=== PATIENT | female | born 1945 | race Caucasian/White ===

== ENCOUNTER → 2017-08-29 08:07 | Outpatient (CLI) | payer MEDICARE, OTHER, SELFPAY ==
--- NOTE | 2017-08-29 08:07 | DT_ITS ---
This patient was seen during an EMR downtime August 27, 2017 - September 03, 2017. This patient may have a combination of paper and electronic documentation or all paper documentation. All documentation is viewable within the e-chart portion of [facility] for each patient visit.
[2017-09-03 12:32] LABS: BUN 12 mg/dL (7-18); BUN/Creat Ratio 17.9 RATIO (10-20); Calcium,Total 9.7 mg/dL (8.5-10.1); Chloride 101 mmol/L (98-107); Creatinine, Serum 0.67 mg/dL (0.55-1.02); EST Glomerular Filtration Rate 92 mL/min (>60); Est Glom Filt Rate - Afr Amer 112 mL/min (>60); Glucose 89 mg/dL (74-106); Potassium 3.5 mmol/L (3.5-5.1); Sodium Level 140 mmol/L (136-145)
[2017-09-03 12:33] LABS: Anion Gap 10 (5-15)
== END ==
PROVIDERS: Family Provider Family Medicine; PCP Family Medicine; Visit Provider Nurse Practitioner Family
DX: E87.6 Hypokalemia (principal)
CPT/HCPCS: 36415; 80048

== ENCOUNTER → 2020-11-17 08:38 | Outpatient (CLI) | payer MEDICARE, SELFPAY ==
--- NOTE | 2020-11-17 08:47 | US_ITS ---
STUDY: ULTRASOUND BREAST - RIGHT REASON FOR EXAM: Female, 74 years old. 6 month history of a right breast mass. Patient refuses a mammogram. TECHNIQUE: Axial and longitudinal images of the RIGHT breast were performed with a high resolution ultrasound transducer. # OF IMAGES: 37 COMPARISON: None. FINDINGS: RIGHT Breast: There is a 3.8 cm x 3.8 cm x 3 cm heterogeneous irregular mass at 11 o''clock position of the breast at 4 cm from nipple. There is evidence of increased vascularity. There is a 3.5 cm x 2.5 cm x 1.5 cm right axillary lymph node. US/Breast Limited Unilateral IMPRESSION: 3.8 cm x 3.8 cm x 3 cm irregular heterogeneous solid mass at 11 o''clock position of the breast at 4 cm from nipple. A neoplastic process should be ruled out. 3.5 cm x 2.5 cm x 1.5 cm right axillary lymph node ASSESSMENT CATEGORY: BIRADS Category 5: Highly Suggestive of Malignancy - Appropriate Action Should Be Taken. A letter regarding these results will be sent to the patient by the facility within 30 days. Electronically Signed: Moe Gomes MD at 14:58 EDT , Service support ,
== END ==
PROVIDERS: PCP Family Medicine; Referring Provider Family Medicine; Visit Provider Family Medicine
DX: N63.11 Unspecified lump in the right breast, upper outer quadrant (principal)
CPT/HCPCS: 76642

== ENCOUNTER → 2020-11-23 16:18 | Outpatient (CLI) | payer MEDICARE, SELFPAY ==
--- NOTE | 2020-11-23 | IMM_PTH ---
PATIENT: CATRINA WOLF LOC: [facility] U#:[id number] AGE/SX: 79/F ROOM: RE11/23/[address]: Dr. Tito Pal MD : 1945 BED: DIS: SPEC #: [id number] RECD: 11/25/20 13:12 STATUS: RADHA REQ #: [id number] TUCKER: 11/23/20 00:[address]: Tito Pal DEPT: IMMUNOHISTOCHEMISTRY RECD BY: Zhanna Milan ENTERED: 11/25/20 13:13 SP TYPE: IMMUNO OTHR DR: Dr. Meño Dixon MD Tissues: Right breast, NOS Procedures: CALPONIN-1 (add) CK5-6 (add) CK8 (add) KINSEY-2 (add) E-CAD (add) HER2 ALEXIS (add) KI-67 (add) P53 (add) DE (add) IN SITU HYBRIDIZATION P40 (add) ER (initial) PHYSICIAN & [address] [address] SPECIMEN INFORMATION: Tissue Source: Right breast biopsy Clinical Info: Abnormal right breast imaging Specimen Number: [id number] CPT code: 35565, 27502 x7, 03174 x3 METHODOLOGY: Deparaffinized sections of prefer/formalin-fixed tissue or PAP/DQ stained slides are incubated with monoclonal/polyclonal antibodies/oligonucleotide probes. Localization is made via biotin free immunoperoxidase method. Appropriate controls are performed and reacted as expected. Results on target cell population are indicated in the following table: RESULTS: ANTIBODY / CLONE RESULT P53 (DO-7) positive, >95%, moderate to strong Ki-67 (30-9) positive, >80% CK8 (61vrzzG59) positive CK5-6 (D5 & 1684) negative Calponin-1 (KN874C) negative P40 (BC28) negative E-Cad (ECH-6) negative KINSEY-2 (SP21) positive MORPHOMETRIC ANALYSIS ER (clone 6F11) >95%, strong intensity DE (clone 16/1E2) 0% Her-2Neu (clone CB11) 2+ The prognostic test for HER2 is performed on formalin-fixed paraffin embedded tissue. A 3+ (positive) staining pattern is defined as intense, homogeneous, complete, circumferential membranous staining in >10% of contiguous tumor cells. A similar weak (2+) staining pattern is interpreted as equivocal. STEVEN follow-up testing is recommended for all equivocal cases. Positivity/negativity for ER/DE is reported if > or < 1% of the tumor cells are immuno- reactive, respectively. The ASCO/CAP criteria is used for scoring. Reference: Journal of Clinical Oncology, 2013; 31:6030-1505 & 2010; 16:5288-3067. Duration of fixation: 28 Hrs; Sample Adequate: Yes. These assays have not been validated on decalcified tissues. Results should be interpreted with caution given the likelihood of false negativity on decalcified specimens. These tests were developed and their performance characteristics determined by [facility]. They may not have been cleared or approved by the U.[place]. Food and Drug Administration. The FDA has determined that such clearance or approval is not necessary. The above immunohistochemical/dualISH markers are ordered and reviewed by the Pathologist. INTERPRETATION: Right breast, core biopsy: Invasive ductal carcinoma, nuclear grade 2-3. Positive for estrogen receptors (favorable prognostic indicator). Negative for progesterone receptors (unfavorable prognostic indicator). Equivocal for overexpression of UIP9vyn. AM:lauro 11/26/2020 ADDENDUM ADDENDUM ADDENDUM ADDENDUM ADDENDUM ADDENDUM ADDENDUM ADDENDUM ADDENDUM ADDENDUM ADDENDUM ADDENDUM ADDENDUM ADDENDUM ADDENDUM ADDENDUM ADDENDUM ADDENDUM ADDENDUM ADDENDUM ADDENDUM 12/01/2020 09:57 ADDENDUM 12/01/2020 09:57 ADDENDUM 12/01/2020 09:57 ADDENDUM 12/01/2020 09:57 ADDENDUM 12/01/2020 09:57 IN SITU HYBRIDIZATION (STEVEN) FOR HER2 Interpretation: Not Amplified HER2 : CEP-17 Ratio: 1.25 Average HER2 Signal: 2.5 Average CEP-17 Signal: 2.0 Number of Tumor Cells Scanned: 50 Interpretative Information: The INFORM HER2 Dual STEVEN DNA Probe Cocktail assay is performed on formalin-fixed paraffin embedded tissue and determines HER2 gene status by detecting HER2 copies via silver in situ hybridization (SISH) and Chromosome 17 copies via chromogenic red in situ hybridization on tumor cells. A minimum of 20 cells representing > 10% of contiguous and homogeneous invasive tumor cells were analyzed. HER2 gene status is classified as Non-amplified (HER2/Chr17 ratio < 2.0) or Amplified (HER2/Chr17 ratio greater than or equal to 2.0). If the resulting HER2/Chr17 ratio falls within 1.8 - 2.2 (Borderline), retesting by FISH is recommended. Reference: Zackery AC, Elana ESTRADA, Cody DG, et al: Recommendations for Human Epidermal Growth Factor Receptor 2 Testing in Breast Cancer: [place] [employer] / [employer] Clinical Practice Guideline Update. J Clin Oncol 31:5394-8266, 2013.
--- NOTE | 2020-11-23 15:30 | BRBX_PTH ---
PATIENT: CATRINA WOLF LOC: [facility] U#:[id number] AGE/SX: 79/F ROOM: RE11/23/[address]: Dr. Tito Pal MD : 1945 BED: DIS: SPEC #: [id number] RECD: 11/23/20 16:10 STATUS: RADHA KATHY #: [id number] TUCKER: 11/23/20 15:[address]: Tito Pal DEPT: SURGICAL PATHOLOGY RECD BY: Lesly Bazan ENTERED: 11/24/20 13:14 SP TYPE: BREAST BX OTHR DR: Dr. Meño Dixon MD Tissues: Right breast, NOS Procedures: Surgery Specimen Level IV HEADER OPERATION: Right breast biopsy PRE-OP DIAGNOSIS: Abnormal right breast imaging TISSUE SUBMITTED: Right breast tissue ISCHEMIC TIME: <1 minute FIXATION TIME: 28 hours MICROSCOPIC DIAGNOSIS Right breast mass, core biopsy: Invasive ductal carcinoma with the following characteristics: Maximal length ? 13 millimeters Nuclear grade ? 1-2 See comment. AM:lauro 11/25/2020 COMMENT Immunohistochemistry ([id number]) supports the above diagnosis. Case has been reviewed in consultation with Dr. Larsen who concurs with the above diagnosis. IDC:MIRIAN MICROSCOPIC DESCRIPTION Slides are reviewed. GROSS DESCRIPTION Received in fixative is one container labeled with the patient's name and designated right breast tissue. The specimen consists of an elongated piece of amaya-yellow fibroadipose tissue measuring 1.5 cm in length and 0.1 cm in diameter. The specimen is totally submitted in one cassette. / MIRIAN:lauro 11/24/20 TC:0 CPT: 60393
== END ==
PROVIDERS: PCP Family Medicine; Referring Provider Surgery; Visit Provider Surgery
DX: R92.8 Other abnormal and inconclusive findings on diagnostic imaging of breast (principal)
CPT/HCPCS: 88305; 88341; 88342; 88368